=== PATIENT | male | born 1950 | race Caucasian/White ===

== ENCOUNTER → 2020-09-10 12:18 | Outpatient (BNVA) | payer MEDICARE, SELFPAY | PROVIDERS: PCP Internal Medicine Interventional Cardiology; Referring Provider Internal Medicine Interventional Cardiology; Visit Provider Psychiatry & Neurology Neurology | DX: I73.9 Peripheral vascular disease, unspecified (principal); M54.5 Low back pain; M25.511 Pain in right shoulder; M25.512 Pain in left shoulder; R13.10 Dysphagia, unspecified | CPT/HCPCS: 99205 ==

== ENCOUNTER 2021-04-18 04:40 | Outpatient (CLI) | payer MEDICARE, SELFPAY ==
[2021-04-18 08:25] VITALS: BP 142/79; PULSE 53; RESP 19; TEMP 36.4; O2SAT 95
[2021-04-18] MEDS: Normal Saline Flush 10 ML SYR IVP (09:11)
[2021-04-18] MEDS: Normal Saline 500 ML 30 ML IV (09:11)
[2021-04-18 09:13] VITALS: BP 151/80; PULSE 53; RESP 18; TEMP 36.7; O2SAT 94
[2021-04-18 09:27] VITALS: BP 145/63; PULSE 52; RESP 17; TEMP 36.5; O2SAT 95
[2021-04-18 09:55] VITALS: BP 143/74; PULSE 50; RESP 18; TEMP 36.5; O2SAT 93
[2021-04-18 10:25] VITALS: BP 145/78; PULSE 55; RESP 19; TEMP 36.7; O2SAT 95
[2021-04-18 10:55] VITALS: BP 149/80; PULSE 51; RESP 19; TEMP 36.5; O2SAT 95
== END 2021-04-18 04:41 | disposition home or self-care (01) ==
LOC: INF 04:42
PROVIDERS: PCP Internal Medicine Interventional Cardiology; Visit Provider Family Medicine
DX: U07.1 COVID-19 (principal)
CPT/HCPCS: 96365